=== PATIENT | male | born 1955 | race Caucasian/White ===

== ENCOUNTER 2018-01-27 15:33 | Outpatient (CLI) | payer OTHER | END 2018-01-27 16:33 | disposition home or self-care (01) | LOC: DCC 15:33 | DX: I50.9 Heart failure, unspecified (principal); K27.9 Peptic ulcer, site unspecified, unspecified as acute or chronic, without hemorrhage or perforation; B19.10 Unspecified viral hepatitis B without hepatic coma; J18.9 Pneumonia, unspecified organism; E87.1 Hypo-osmolality and hyponatremia | CPT/HCPCS: G0463 ==